=== PATIENT | male | born 1960 | race Caucasian/White ===

== ENCOUNTER 2019-06-19 12:52 | Inpatient (IN) | payer OTHER ==
[~2019-06-19] VITALS: Ht 182.8 cm; Wt 68.0 kg
[~2019-06-19 12:52] MED LIST: ALBUTEROL2.5 MG/0.5 INH; AMLODIPINE BESYL5 MG PO; ARANESP25 MCG/0.4 IJ; ASPIRIN CHEWABL81 MG PO; ASPIRIN81 M1 PO; ATORVASTATIN CA20 M1 PO; BRIMONIDINE TAR10 ML OS; BUPROPION HCL100 M2 PO; BUPROPION HCL200 MG PO; BUPROPION HCL300 MG PO; BUSPIRONE HCL10 MG PO; CELEXA20 MG PO; CIPRO250 MG PO; COMBIVENT RESPIM4 GM INH; COREG12.5 M1 PO; COREG25 MG PO; D3-20002000 UNIT PO; DOCUSATE SODIU250 MG PO; EFFEXOR XR150 MG PO; EFFEXOR XR75 MG PO; FINASTERIDE5 M1 PO; FLOMAX0.4 MG PO; GABAPENTIN100 MG PO; GLUCAGON EMERGEN1 M1 IJ; GLUCOSE1 EACH PO; GLUCOSE33 GM PO; KEFLEX500 MG PO; KENALOG 0.5% CR15 GM T; LANTUS SOL100 UNIT/1 SC; LANTUS SOL100 UNIT/1 SQ; LANTUS SOLOS100 U/M1 SC; LIPITOR20 MG PO; LIPITOR40 MG PO; LOMOTIL 0.025 M1 TA1 PO; MULTI VITAMINS1 TAB PO; NEURONTIN100 MG PO; NICOTINE POLACRI2 MG PO; NOVOLOG FL100 UNIT/1 SQ; NOVOLOG FL100 UNIT/2 SQ; PHENERGAN25 M1 PO; POLYETHYLENE GL1 PO7 PO; PREDNISONE10 MG PO; PREDNISONE20 M1 PO; SPIRIVA18 MCG PO; TAMSULOSIN HCL0.4 MG PO; TRAZODONE HCL300 MG PO; TRAZODONE150 MG PO; VENTOLIN H0.09 MG/AC INH; VIBRAMYCIN100 MG PO; VITAMIN D22000 UNIT PO; ZITHROMAX250 MG PO; ZOFRAN ODT4 MG SL; [UNRECOGNIZED DRUG - OTHER] PO
[2019-06-19 12:53] VITALS: BP 163/70
[2019-06-19 13:23] LABS: BASO % 0.4 % (0.0-1.0); EOS # 0.7 10*3/uL (0.0-0.4); EOS % 8.2 % (1.0-4.0); HEMATOCRIT 27.1 % (42.0-52.0); HEMOGLOBIN 9.2 g/dl (14.0-18.0); LYMPH # 1.4 10*3/uL (1.3-4.4); LYMPH % 16.5 % (27.0-41.0); MEAN CELL VOLUME 92.5 fl (80.0-94.0); MEAN CORPUSCULAR HGB 31.4 pg (27.0-31.0); MEAN CORPUSCULAR HGB CONC 33.9 g/dl (33.0-37.0); MEAN PLATELET VOLUME 8.3 fl (9.6-12.3); MONO # 0.7 10*3/uL (0.1-1.0); MONO % 8.5 % (3.0-9.0); NEUT # 5.6 10*3/uL (2.3-7.9); NEUT % 65.9 % (47.0-73.0); PLATELET COUNT AUTOMATED 285 10*3/uL (130-400); RED BLOOD COUNT 2.93 10*6/uL (4.50-5.90); RED CELL DISTRI WIDTH 12.3 % (0-14.5); WHITE BLOOD COUNT 8.4 10*3/uL (4.8-10.8)
[2019-06-19 13:33] LABS: ACT PARTIAL THROMBO TIME 26.1 SECONDS (20.0-32.1); INTERNATIONAL NORM RATIO 0.9 (2.0-3.5)
[2019-06-19 13:39] LABS: ALBUMIN 3.6 gm/dl (3.1-4.5); ALKALINE PHOSPHATASE 99 U/L (45-117); BUN 40 mg/dl (7-24); CHLORIDE 110 mmol/L (98-107); LIPASE 35 U/L (73-393); POTASSIUM 4.3 mmol/L (3.5-5.1); SGOT/AST 12 IU/L (3-35); SGPT/ALT 29 U/L (12-78); SODIUM 140 mmol/L (136-145); TOTAL PROTEIN 6.8 gm/dL (6.4-8.2)
[2019-06-19 13:45] LABS: TROPONIN I < 0.015 ng/ml (<0.045)
[2019-06-19 14:23] VITALS: BP 152/67
[2019-06-19 17:01] VITALS: BP 148/68
--- NOTE | 2019-06-19 17:02 | NUR ---
PT RESTING IN ROOM WATCHING TV
[2019-06-19 18:00] VITALS: BP 151/76
[2019-06-19 18:30] VITALS: BP 151/76
--- NOTE | 2019-06-19 18:30 | NUR ---
A 59, admitted to 4E, under the services of LEONARDO Vidales DO with a diagnosis of ACUTE RENAL FAILURE. Chief complaint is DIZZY. Patient arrived via stretcher from ER. Monitor applied. Initial assessment completed. Vital signs taken and recorded. LEONARDO VIDALES DO notified of admission to the unit. Orders received. See assessment for past medical history, medications and allergies. Patient and/or family oriented to unit. [facility] visitation policy reviewed. Clothing/patient valuable form completed. BHUMIKA BAJWA
--- NOTE | 2019-06-19 18:57 | NUR ---
DR. SOUSA AWARE OF CONSULT.
[2019-06-19 20:00] VITALS: BP 146/65
--- NOTE | 2019-06-19 22:07 | NUR ---
NORCO GIVEN PER PRN ORDER FOR C/O FOOT PAIN. RATED PAIN A 7/10 WITH 10 BEING THE WORST. SEE EMAR. REINFORCED USE OF CALL LIGHT.
[2019-06-19 22:59] LABS: URINE CREATININE RANDOM 87.3 mg/dL
[2019-06-20] VITALS: BP 140/52
[2019-06-20 06:06] LABS: BASO % 0.4 % (0.0-1.0); EOS # 0.8 10*3/uL (0.0-0.4); EOS % 9.6 % (1.0-4.0); HEMATOCRIT 26.9 % (42.0-52.0); LYMPH # 1.8 10*3/uL (1.3-4.4); MEAN CELL VOLUME 93.4 fl (80.0-94.0); MEAN CORPUSCULAR HGB 31.3 pg (27.0-31.0); MEAN CORPUSCULAR HGB CONC 33.5 g/dl (33.0-37.0); MEAN PLATELET VOLUME 8.7 fl (9.6-12.3); MONO # 0.7 10*3/uL (0.1-1.0); MONO % 8.7 % (3.0-9.0); NEUT # 4.6 10*3/uL (2.3-7.9); NEUT % 57.9 % (47.0-73.0); PLATELET COUNT AUTOMATED 298 10*3/uL (130-400); RED BLOOD COUNT 2.88 10*6/uL (4.50-5.90); RED CELL DISTRI WIDTH 12.3 % (0-14.5); WHITE BLOOD COUNT 7.9 10*3/uL (4.8-10.8)
[2019-06-20 06:39] LABS: ALBUMIN 3.5 gm/dl (3.1-4.5); POTASSIUM 4.2 mmol/L (3.5-5.1)
[2019-06-20 06:51] LABS: CREATININE 3.51 mg/dL (0.70-1.30); PHOSPHOROUS 4.2 mg/dL (2.5-4.9); THYROID STIM HORMONE (HS) 2.33 uIU/ml (0.358-4.75); TOTAL PROTEIN 6.3 gm/dL (6.4-8.2)
[2019-06-20 07:40] VITALS: BP 146/82
--- NOTE | 2019-06-20 07:40 | NUR ---
PAIENT PLEASANT AND COOPERATIVE DURING AM ASSEMENT, NO COMPLAINTS AT THIS TIME. GILDARDO ANDERSON SPNRCC
--- NOTE | 2019-06-20 08:00 | NUR ---
Alert and oriented x3. Lungs clear throughout. Denies sob. Abdomen soft normoactive bs x4. C/o nausea. States BM sunday. Denies pain. Resident in and examined pt. Aware of nausea.
--- NOTE | 2019-06-20 08:15 | NUR ---
IN TO EXAMINE PATIENT, ORDERED ORTHOSTATIC BLOOD PRESSURES, RESULTS WERE POSITIVE FOR CHANGE AND SYMPTOMS, RN NOTIFIED, WILL CONTINUE TO MONITOR. GILDARDO ANDERSON SPOCTAVIOCC
--- NOTE | 2019-06-20 08:40 | NUR ---
PATIENT C/O 9 OUT OF 10 "BURNING" FOOT PAIN, PRN NORCO GIVEN, PATIENT RESTING IN BED AT THIS TIME. GILDARDO ANDERSON SPNRCC
--- NOTE | 2019-06-20 09:00 | NUR ---
Satellite Tv Installer in to talk to patient. Patient states lives at home with . There are no steps in the home. Physician: liam [facility] Home health services: none Patient's level of ADLs: INDEPENDENT Patient has working utilities: all working DME: cane Follow-up physician's appointment after d/c: will be made by hospitalist nurse director upon discharge Does patient want to access PORTAL?: no Discharge plan discussed with patient, he states he lives at home with , he is blind and uses a cane for ambulation, his helps with his daily care, he stated he will return home when medically stable and denies any home needs, case management will follow. JACINTO KNIGHT
--- NOTE | 2019-06-20 09:45 | NUR ---
PAIN MEDICATION EFECTIVE, PATIENT STATES PAIN NOW A 2 OUT OF 10, WILL CONTINUE TO MONITOR. GILDARDO ANDERSON SPCC
--- NOTE | 2019-06-20 09:50 | NUR ---
Spoke with Dr. Barry and Dr. Blackwood regarding pt statements regarding home insulin and how he counts carbs and takes insulin when he eats.
--- NOTE | 2019-06-20 11:14 | NUR ---
PT GLUCOSE MACHINE SAYS 400, PT ONLY WOULD ALLOW US TO GIVE 6 UNITS OF HUMALOG GILDARDO ANDERSON SPNRCC
[2019-06-20 12:00] VITALS: BP 152/74
--- NOTE | 2019-06-20 13:00 | NUR ---
PT STATES THAT HE FEELS NAUSEATED, MEDICATED WITH ZOFRAN, NURSE CALLED DOCTOR ABOUT OBTAINING HIS LANTUS INSULIN, GILDARDO WEINSTEINCC
--- NOTE | 2019-06-20 13:12 | NUR ---
GAVE PT MORING DOSE OF LANTUS, ALSO GAVE AN ADDITIONAL 6 UNITS OF HUMALOG FOR ELEVATED BLOOD SUGAR AND TO COVER LUNCH, NAUSEA ALREADY SUBSIDING, TOTAL OF 12 UNITS OF RAPID ACTING INSULIN GIVEN FOR 1130 COVERAGE GILDARDO WOODRUFF
--- NOTE | 2019-06-20 13:41 | NUR ---
AT THE BEDSIDE, CONTINUING TO EAT LUNCH WITHOUT FURTHER NAUSEA GILDARDO ANDERSON SPNRCC
[2019-06-20 14:58] LABS: BILIRUBIN NEGATIVE (NEGATIVE); BLOOD NEGATIVE (NEGATIVE); CLARITY CLEAR (CLEAR); COLOR STRAW (YELLOW); GLUCOSE 3+ (NEGATIVE); KETONE NEGATIVE (NEGATIVE); LEUKO ESTERASE NEGATIVE (NEGATIVE); NITRITE NEGATIVE (NEGATIVE); UROBILINOGEN 0.2 E.U./dl (0.2-1.0)
[2019-06-20 14:59] LABS: WBC 0-2 wbc/hpf (0-5)
--- NOTE | 2019-06-20 16:00 | NUR ---
Pt states his blood sugar is 400. Pt is currently ordered DC. Pt states he does not want coverage here that he will adress it at home. I did notify Dr. Blackwood of pt results and statements. Offered coverage to pt but he states he wants to take it at home. present with pt agrees. States pt had good control of glucose at home. Reviewed dc instructions and questions answered.
--- NOTE | 2019-06-20 16:10 | NUR ---
Dc in care of via wheelchair.
== END 2019-06-20 16:10 | disposition home or self-care (01) | DRG 637 ==
LOC: ED 12:52 → 4E 17:25
PROVIDERS: Emergency Medicine; Internal Medicine Nephrology; Student in an Organized Health Care Education/Training Program; ADMIT Family Medicine
DX: E10.65 Type 1 diabetes mellitus with hyperglycemia (principal); N17.0 Acute kidney failure with tubular necrosis; N18.4 Chronic kidney disease, stage 4 (severe); E10.319 Type 1 diabetes mellitus with unspecified diabetic retinopathy without macular edema; E10.43 Type 1 diabetes mellitus with diabetic autonomic (poly)neuropathy; I95.1 Orthostatic hypotension; F32.9 Major depressive disorder, single episode, unspecified; I12.9 Hypertensive chronic kidney disease with stage 1 through stage 4 chronic kidney disease, or unspecified chronic kidney disease; F41.9 Anxiety disorder, unspecified; E78.5 Hyperlipidemia, unspecified; J44.9 Chronic obstructive pulmonary disease, unspecified; E87.8 Other disorders of electrolyte and fluid balance, not elsewhere classified; N40.1 Benign prostatic hyperplasia with lower urinary tract symptoms; R35.1 Nocturia; D64.9 Anemia, unspecified; E10.22 Type 1 diabetes mellitus with diabetic chronic kidney disease; Z81.8 Family history of other mental and behavioral disorders; Z79.82 Long term (current) use of aspirin; Z79.899 Other long term (current) drug therapy; Z79.4 Long term (current) use of insulin; Z87.891 Personal history of nicotine dependence

== ENCOUNTER 2019-08-23 13:03 | Emergency (ER) | payer MEDICARE, OTHER ==
[~2019-08-23] VITALS: Ht 182.8 cm; Wt 72.6 kg
[2019-08-23 14:02] LABS: BASO % 0.2 % (0.0-1.0); EOS # 0.3 10*3/uL (0.0-0.4); EOS % 1.8 % (1.0-4.0); HEMATOCRIT 28.9 % (42.0-52.0); HEMOGLOBIN 9.6 g/dl (14.0-18.0); LYMPH # 1.2 10*3/uL (1.3-4.4); LYMPH % 8.1 % (27.0-41.0); MEAN CELL VOLUME 93.2 fl (80.0-94.0); MEAN CORPUSCULAR HGB CONC 33.2 g/dl (33.0-37.0); MEAN PLATELET VOLUME 8.6 fl (9.6-12.3); MONO # 1.4 10*3/uL (0.1-1.0); MONO % 9.3 % (3.0-9.0); NEUT # 11.9 10*3/uL (2.3-7.9); NEUT % 80.1 % (47.0-73.0); PLATELET COUNT AUTOMATED 296 10*3/uL (130-400); RED CELL DISTRI WIDTH 12.7 % (0-14.5); WHITE BLOOD COUNT 14.9 10*3/uL (4.8-10.8)
[2019-08-23 14:19] LABS: ALBUMIN 3.1 gm/dl (3.1-4.5); CREATININE 3.48 mg/dL (0.70-1.30); POTASSIUM 3.9 mmol/L (3.5-5.1); TOTAL PROTEIN 6.6 gm/dL (6.4-8.2)
[2019-08-23] MEDS ORDERED: KEFLEX500 M1 PO (15:24)
[2019-08-23] MEDS ORDERED: ZOFRAN4 MG PO (15:24)
[2019-08-23] MEDS ORDERED: IMODIUM A-D2 M2 PO (15:24)
== END 2019-08-23 15:18 | disposition home or self-care (01) ==
LOC: ED 13:03
PROVIDERS: Emergency Medicine
DX: L03.116 Cellulitis of left lower limb (principal); K52.9 Noninfective gastroenteritis and colitis, unspecified; Z79.899 Other long term (current) drug therapy; Z79.4 Long term (current) use of insulin; Z79.82 Long term (current) use of aspirin

== ENCOUNTER → 2020-06-30 | Outpatient (CLI) | payer MEDICARE, OTHER ==
[~2020-06-30] MED LIST changes: +IMODIUM A-D2 M2 PO; +KEFLEX500 M1 PO; +ZOFRAN4 MG PO
[2020-06-30 12:26] LABS: BASO # 0.1 10*3/uL (0.0-0.1); BASO % 0.9 % (0.0-1.0); EOS % 17.6 % (1.0-4.0); HEMATOCRIT 30.4 % (42.0-52.0); LYMPH # 1.3 10*3/uL (1.3-4.4); LYMPH % 11.5 % (27.0-41.0); MEAN CELL VOLUME 93.8 fl (80.0-94.0); MEAN CORPUSCULAR HGB 30.9 pg (27.0-31.0); MEAN CORPUSCULAR HGB CONC 32.9 g/dl (33.0-37.0); MEAN PLATELET VOLUME 8.6 fl (9.6-12.3); MONO % 8.4 % (3.0-9.0); NEUT % 61.2 % (47.0-73.0); PLATELET COUNT AUTOMATED 374 10*3/uL (130-400); RED BLOOD COUNT 3.24 10*6/uL (4.50-5.90); RED CELL DISTRI WIDTH 14.4 % (0-14.5); WHITE BLOOD COUNT 11.4 10*3/uL (4.8-10.8)
[2020-06-30 12:53] LABS: ALBUMIN 2.8 gm/dl (3.1-4.5); CREATININE 4.04 mg/dL (0.70-1.30); POTASSIUM 4.3 mmol/L (3.5-5.1); TOTAL PROTEIN 6.1 gm/dL (6.4-8.2)
[2020-06-30 13:59] LABS: PTH INTACT 50.3 pg/mL (18.5-88.0); VITAMIN D, 25-HYDROXY 58.5 ng/mL (30-100)
== END | disposition home or self-care (01) ==
LOC: LAB 11:57
PROVIDERS: ATTEND Internal Medicine Nephrology
DX: N18.5 Chronic kidney disease, stage 5 (principal); Z11.59 Encounter for screening for other viral diseases; Z79.899 Other long term (current) drug therapy; Z72.89 Other problems related to lifestyle

== ENCOUNTER 2021-04-30 08:36 | Emergency (ER) | payer MEDICARE, OTHER ==
[~2021-04-30] VITALS: Wt 68.0 kg
[2021-04-30 09:11] LABS: HEMATOCRIT 33.8 % (42.0-52.0); MEAN CELL VOLUME 90.9 fl (80.0-94.0); MEAN CORPUSCULAR HGB 29.6 pg (27.0-31.0); MEAN CORPUSCULAR HGB CONC 32.5 g/dl (33.0-37.0); MEAN PLATELET VOLUME 9.2 fl (9.6-12.3); PLATELET COUNT AUTOMATED 273 10*3/uL (130-400); RED BLOOD COUNT 3.72 10*6/uL (4.50-5.90); RED CELL DISTRI WIDTH 15.9 % (0-14.5); WHITE BLOOD COUNT 23.7 10*3/uL (4.8-10.8)
[2021-04-30 09:21] LABS: ACT PARTIAL THROMBO TIME 30.5 SECONDS (20.0-32.1)
[2021-04-30 09:27] LABS: ALBUMIN 2.1 gm/dl (3.1-4.5); CREATININE 5.32 mg/dL (0.70-1.30); POTASSIUM 3.7 mmol/L (3.5-5.1); TOTAL CELLS COUNTED 100 #CELLS; TOTAL PROTEIN 6.3 gm/dL (6.4-8.2)
[2021-04-30 09:28] LABS: PLATELET SUFFICIENCY NORMAL (NORMAL); POLYCHROMASIA SLIGHT
[2021-04-30 14:47] LABS: BILIRUBIN Negative (Negative); BLOOD 1+ (Negative); CLARITY Clear (Clear); COLOR Yellow (Yellow); GLUCOSE 1+ (Negative); KETONE Negative (Negative); LEUKO ESTERASE Negative (Negative); NITRITE Negative (Negative); PH 5.5 (4.5-8.0); SPECIFIC GRAVITY 1.015 (1.001-1.030)
[2021-04-30 15:06] LABS: BODY FLUID WBC 53 /uL
[2021-04-30 15:25] LABS: BACTERIA 1+; WBC 0-2 wbc/hpf (0-5)
[2021-04-30 16:02] LABS: BF LYMPHOCYTES 2 %; BF MONOCYTES 47 %; BF NEUTROPHILS 51 %
== END 2021-04-30 21:47 | disposition short-term general hospital (02) ==
LOC: ED 08:36
PROVIDERS: Emergency Medicine
DX: G93.40 Encephalopathy, unspecified (principal); Z20.822 Contact with and (suspected) exposure to COVID-19; L03.115 Cellulitis of right lower limb; L03.116 Cellulitis of left lower limb; R41.0 Disorientation, unspecified; F17.200 Nicotine dependence, unspecified, uncomplicated; I12.9 Hypertensive chronic kidney disease with stage 1 through stage 4 chronic kidney disease, or unspecified chronic kidney disease; E11.22 Type 2 diabetes mellitus with diabetic chronic kidney disease; N18.9 Chronic kidney disease, unspecified; Z98.890 Other specified postprocedural states; Z79.4 Long term (current) use of insulin; Z79.82 Long term (current) use of aspirin; Z79.899 Other long term (current) drug therapy

== ENCOUNTER 2021-09-17 12:28 | Inpatient (IN) | payer MEDICARE, OTHER ==
[~2021-09-17] VITALS: Ht 182.9 cm; Wt 65.6 kg
[~2021-09-17 12:28] MED LIST changes: +AMITRIPTYLINE10 MG PO; +LASIX80 MG PO
[2021-09-17 12:29] VITALS: BP 114/56
[2021-09-17 14:04] LABS: BASO % 0.3 % (0.0-1.0); EOS # 0.2 10*3/uL (0.0-0.4); EOS % 1.7 % (1.0-4.0); HEMATOCRIT 29.4 % (42.0-52.0); LYMPH # 0.9 10*3/uL (1.3-4.4); LYMPH % 8.2 % (27.0-41.0); MEAN CELL VOLUME 97.4 fl (80.0-94.0); MEAN CORPUSCULAR HGB 30.5 pg (27.0-31.0); MEAN CORPUSCULAR HGB CONC 31.3 g/dl (33.0-37.0); MEAN PLATELET VOLUME 9.4 fl (9.6-12.3); MONO # 0.6 10*3/uL (0.1-1.0); MONO % 6.2 % (3.0-9.0); NEUT # 8.6 10*3/uL (2.3-7.9); NEUT % 82.9 % (47.0-73.0); PLATELET COUNT AUTOMATED 356 10*3/uL (130-400); RED BLOOD COUNT 3.02 10*6/uL (4.50-5.90); RED CELL DISTRI WIDTH 15.7 % (0-14.5); WHITE BLOOD COUNT 10.3 10*3/uL (4.8-10.8)
[2021-09-17 14:16] LABS: CREATININE 5.46 mg/dL (0.70-1.30); POTASSIUM 3.7 mmol/L (3.5-5.1)
[2021-09-17 14:25] LABS: ACT PARTIAL THROMBO TIME 29.4 SECONDS (20.0-32.1)
[2021-09-17 15:19] LABS: BILIRUBIN Negative (Negative); BLOOD Negative (Negative); CLARITY Clear (Clear); COLOR Yellow (Yellow); GLUCOSE 3+ (Negative); KETONE Trace (Negative); LEUKO ESTERASE Negative (Negative); NITRITE Negative (Negative); PH 5.5 (4.5-8.0); UROBILINOGEN 0.2 E.U./dl (0.0-1.0)
[2021-09-17 15:44] LABS: BACTERIA 2+
[2021-09-17 15:45] LABS: EPITHELIAL CELLS 0-2
[2021-09-17 18:00] VITALS: BP 121/62
[2021-09-17] MEDS ORDERED: VENLAFAXINE H37.5 M5 PO (18:25)
[2021-09-17] MEDS ORDERED: BUPROPION XL300 MG PO (18:27)
[2021-09-17] MEDS ORDERED: TRAZODONE150 MG PO (18:31)
[2021-09-17] MEDS ORDERED: LATANOPROST2.5 ML OP (18:34)
[2021-09-17] MEDS ORDERED: AMLODIPINE BESY10 MG PO (18:35)
[2021-09-17] MEDS ORDERED: CALCIUM ACETAT667 MG PO (18:40)
[2021-09-17] MEDS ORDERED: PREGABALIN150 MG PO (18:41)
[2021-09-17] MEDS ORDERED: OMEPRAZOLE MAGN20 MG PO (18:43)
[2021-09-17] MEDS ORDERED: RENAL VITAMIN0.8 MG PO (18:50)
[2021-09-17] MEDS ORDERED: OXYCODONE HCL5 MG PO (18:52)
[2021-09-17] MEDS ORDERED: MELATONIN3 M3 PO (19:11)
[2021-09-17 20:00] VITALS: BP 111/73
[2021-09-18] VITALS: BP 111/58
[2021-09-18] MEDS ORDERED: LYRICA100 M1 PO (00:49)
[2021-09-18] MEDS ORDERED: LANTUS SOL100 UNIT/1 SC (00:57)
[2021-09-18] MEDS ORDERED: LOW DOSE ASPIRI81 M1 PO (01:00)
[2021-09-18 02:31] LABS: BASO % 0.4 % (0.0-1.0); EOS # 0.1 10*3/uL (0.0-0.4); HEMATOCRIT 29.4 % (42.0-52.0); LYMPH # 0.9 10*3/uL (1.3-4.4); LYMPH % 7.8 % (27.0-41.0); MEAN CELL VOLUME 96.4 fl (80.0-94.0); MEAN CORPUSCULAR HGB 29.5 pg (27.0-31.0); MEAN CORPUSCULAR HGB CONC 30.6 g/dl (33.0-37.0); MEAN PLATELET VOLUME 9.5 fl (9.6-12.3); MONO # 0.7 10*3/uL (0.1-1.0); NEUT # 9.6 10*3/uL (2.3-7.9); NEUT % 84.4 % (47.0-73.0); PLATELET COUNT AUTOMATED 358 10*3/uL (130-400); RED BLOOD COUNT 3.05 10*6/uL (4.50-5.90); RED CELL DISTRI WIDTH 15.7 % (0-14.5); WHITE BLOOD COUNT 11.4 10*3/uL (4.8-10.8)
[2021-09-18 02:53] LABS: CREATININE 5.78 mg/dL (0.70-1.30); POTASSIUM 4.1 mmol/L (3.5-5.1)
[2021-09-18 03:17] LABS: VITAMIN D, 25-HYDROXY 36.4 ng/mL (30-100)
[2021-09-18 08:00] VITALS: BP 146/57
[2021-09-18 12:00] VITALS: BP 111/73; BP 179/74
[2021-09-18 16:00] VITALS: BP 136/56
[2021-09-18 20:00] VITALS: BP 119/61
[2021-09-19] VITALS: BP 123/56
[2021-09-19 06:29] LABS: CREATININE 6.19 mg/dL (0.70-1.30); POTASSIUM 3.5 mmol/L (3.5-5.1)
[2021-09-19 06:30] LABS: BASO % 0.3 % (0.0-1.0); EOS # 0.4 10*3/uL (0.0-0.4); EOS % 3.6 % (1.0-4.0); LYMPH # 1.6 10*3/uL (1.3-4.4); LYMPH % 13.2 % (27.0-41.0); MEAN CELL VOLUME 95.4 fl (80.0-94.0); MEAN CORPUSCULAR HGB 30.4 pg (27.0-31.0); MEAN CORPUSCULAR HGB CONC 31.9 g/dl (33.0-37.0); MEAN PLATELET VOLUME 9.7 fl (9.6-12.3); MONO % 8.2 % (3.0-9.0); NEUT # 8.9 10*3/uL (2.3-7.9); NEUT % 74.3 % (47.0-73.0); PLATELET COUNT AUTOMATED 375 10*3/uL (130-400); RED BLOOD COUNT 2.83 10*6/uL (4.50-5.90); RED CELL DISTRI WIDTH 15.7 % (0-14.5)
[2021-09-19 08:00] VITALS: BP 127/69
[2021-09-19 12:00] VITALS: BP 140/65
[2021-09-19 16:00] VITALS: BP 144/65
[2021-09-19 20:00] VITALS: BP 133/53
[2021-09-20] VITALS: BP 113/71
[2021-09-20 06:13] LABS: BASO % 0.5 % (0.0-1.0); EOS # 0.3 10*3/uL (0.0-0.4); EOS % 4.7 % (1.0-4.0); HEMATOCRIT 30.8 % (42.0-52.0); LYMPH # 1.4 10*3/uL (1.3-4.4); LYMPH % 22.6 % (27.0-41.0); MEAN CELL VOLUME 96.3 fl (80.0-94.0); MEAN CORPUSCULAR HGB CONC 31.2 g/dl (33.0-37.0); MEAN PLATELET VOLUME 9.4 fl (9.6-12.3); MONO # 0.7 10*3/uL (0.1-1.0); MONO % 11.6 % (3.0-9.0); NEUT # 3.8 10*3/uL (2.3-7.9); PLATELET COUNT AUTOMATED 367 10*3/uL (130-400); RED CELL DISTRI WIDTH 15.7 % (0-14.5); WHITE BLOOD COUNT 6.4 10*3/uL (4.8-10.8)
[2021-09-20 06:24] LABS: POTASSIUM 4.3 mmol/L (3.5-5.1)
[2021-09-20 06:28] LABS: CREATININE 3.51 mg/dL (0.70-1.30)
[2021-09-20 08:00] VITALS: BP 118/58
[2021-09-20 12:00] VITALS: BP 107/45
[2021-09-20 16:00] VITALS: BP 103/54
[2021-09-20 20:00] VITALS: BP 117/53
[2021-09-21] VITALS: BP 141/74
[2021-09-21 06:34] LABS: BASO % 0.4 % (0.0-1.0); EOS # 0.4 10*3/uL (0.0-0.4); HEMATOCRIT 31.1 % (42.0-52.0); LYMPH # 1.5 10*3/uL (1.3-4.4); LYMPH % 18.3 % (27.0-41.0); MEAN CORPUSCULAR HGB 29.3 pg (27.0-31.0); MEAN CORPUSCULAR HGB CONC 30.5 g/dl (33.0-37.0); MEAN PLATELET VOLUME 9.5 fl (9.6-12.3); MONO % 11.7 % (3.0-9.0); NEUT # 5.3 10*3/uL (2.3-7.9); NEUT % 63.5 % (47.0-73.0); PLATELET COUNT AUTOMATED 401 10*3/uL (130-400); RED BLOOD COUNT 3.24 10*6/uL (4.50-5.90); RED CELL DISTRI WIDTH 15.5 % (0-14.5); WHITE BLOOD COUNT 8.4 10*3/uL (4.8-10.8)
[2021-09-21 07:00] LABS: CREATININE 4.23 mg/dL (0.70-1.30); POTASSIUM 3.9 mmol/L (3.5-5.1)
[2021-09-21 08:00] VITALS: BP 145/67
[2021-09-21 12:00] VITALS: BP 134/77
[2021-09-21 16:00] VITALS: BP 156/78
[2021-09-21 20:00] VITALS: BP 122/46
[2021-09-22] VITALS: BP 124/57
[2021-09-22 06:12] LABS: CREATININE 4.21 mg/dL (0.70-1.30)
[2021-09-22 06:25] LABS: POTASSIUM 5.5 mmol/L (3.5-5.1)
[2021-09-22 06:26] LABS: BASO % 0.5 % (0.0-1.0); EOS # 0.3 10*3/uL (0.0-0.4); EOS % 3.3 % (1.0-4.0); HEMATOCRIT 30.1 % (42.0-52.0); LYMPH # 1.1 10*3/uL (1.3-4.4); LYMPH % 13.6 % (27.0-41.0); MEAN CELL VOLUME 98.4 fl (80.0-94.0); MEAN CORPUSCULAR HGB 29.7 pg (27.0-31.0); MEAN CORPUSCULAR HGB CONC 30.2 g/dl (33.0-37.0); MEAN PLATELET VOLUME 9.8 fl (9.6-12.3); MONO % 11.9 % (3.0-9.0); NEUT # 5.8 10*3/uL (2.3-7.9); NEUT % 69.2 % (47.0-73.0); PLATELET COUNT AUTOMATED 377 10*3/uL (130-400); RED BLOOD COUNT 3.06 10*6/uL (4.50-5.90); RED CELL DISTRI WIDTH 15.7 % (0-14.5); WHITE BLOOD COUNT 8.4 10*3/uL (4.8-10.8)
[2021-09-22 08:00] VITALS: BP 144/66
[2021-09-22 12:00] VITALS: BP 133/76
[2021-09-22] MEDS ORDERED: DOXYCYCLINE MO100 MG PO (15:51)
[2021-09-22] MEDS ORDERED: PREGABALIN75 MG PO (15:51)
== END 2021-09-22 18:16 | disposition home health service (06) | DRG 564 ==
LOC: ED → 4E 17:47 → EDHOLD 17:47 → 4E 17:53
PROVIDERS: Emergency Medicine; Hospitalist; ADMIT Internal Medicine; ATTEND Internal Medicine
PROC: 4A02XM4 Measurement of Cardiac Total Activity, External Approach (ICD-10-PCS; principal; 2021-09-22)
PROC: 3E073KZ Introduction of Other Diagnostic Substance into Coronary Artery, Percutaneous Approach (ICD-10-PCS; 2021-09-22)
PROC: 5A1D70Z Performance of Urinary Filtration, Intermittent, Less than 6 Hours Per Day (ICD-10-PCS; 2021-09-22)
DX: T87.43 Infection of amputation stump, right lower extremity (principal); I21.4 Non-ST elevation (NSTEMI) myocardial infarction; N18.6 End stage renal disease; G93.41 Metabolic encephalopathy; E43 Unspecified severe protein-calorie malnutrition; L03.115 Cellulitis of right lower limb; I12.0 Hypertensive chronic kidney disease with stage 5 chronic kidney disease or end stage renal disease; Z68.1 Body mass index [BMI] 19.9 or less, adult; E83.41 Hypermagnesemia; F17.210 Nicotine dependence, cigarettes, uncomplicated; I34.0 Nonrheumatic mitral (valve) insufficiency; E87.5 Hyperkalemia; D64.9 Anemia, unspecified; Y83.5 Amputation of limb(s) as the cause of abnormal reaction of the patient, or of later complication, without mention of misadventure at the time of the procedure; E11.22 Type 2 diabetes mellitus with diabetic chronic kidney disease; E83.39 Other disorders of phosphorus metabolism; Z99.2 Dependence on renal dialysis; Z71.6 Tobacco abuse counseling

== ENCOUNTER → 2021-10-05 | Outpatient (CLI) | payer MEDICARE, OTHER ==
[~2021-10-05] MED LIST changes: +AMLODIPINE BESY10 MG PO; +BUPROPION XL300 MG PO; +CALCIUM ACETAT667 MG PO; +DOXYCYCLINE MO100 MG PO; +LATANOPROST2.5 ML OP; +LOW DOSE ASPIRI81 M1 PO; +LYRICA100 M1 PO; +MELATONIN3 M3 PO; +OMEPRAZOLE MAGN20 MG PO; +OXYCODONE HCL5 MG PO; +PREGABALIN150 MG PO; +PREGABALIN75 MG PO; +RENAL VITAMIN0.8 MG PO; +VENLAFAXINE H37.5 M5 PO
== END ==
LOC: WOUNDCARE 00:49
PROVIDERS: ATTEND Nurse Practitioner Family
DX: T87.89 Other complications of amputation stump (principal); S81.801A Unspecified open wound, right lower leg, initial encounter; E10.22 Type 1 diabetes mellitus with diabetic chronic kidney disease; I12.0 Hypertensive chronic kidney disease with stage 5 chronic kidney disease or end stage renal disease; N18.6 End stage renal disease; I25.2 Old myocardial infarction; J44.9 Chronic obstructive pulmonary disease, unspecified; N40.0 Benign prostatic hyperplasia without lower urinary tract symptoms; Z87.891 Personal history of nicotine dependence; Z79.4 Long term (current) use of insulin; Z99.2 Dependence on renal dialysis; X58.XXXA Exposure to other specified factors, initial encounter; Y93.89 Activity, other specified; Y92.89 Other specified places as the place of occurrence of the external cause; Y99.8 Other external cause status; Y83.5 Amputation of limb(s) as the cause of abnormal reaction of the patient, or of later complication, without mention of misadventure at the time of the procedure

== ENCOUNTER 2022-02-19 12:19 | Emergency (ER) | payer MEDICARE, OTHER ==
[~2022-02-19] VITALS: Ht 182.8 cm; Wt 65.8 kg
[2022-02-19] MEDS ORDERED: CEPHALEXIN500 M1 PO (13:46)
== END 2022-02-19 13:52 | disposition home or self-care (01) ==
LOC: ED 12:19
DX: M79.642 Pain in left hand (principal); L08.9 Local infection of the skin and subcutaneous tissue, unspecified; Z79.899 Other long term (current) drug therapy; Z79.82 Long term (current) use of aspirin; Z90.89 Acquired absence of other organs; W18.39XA Other fall on same level, initial encounter; Y93.89 Activity, other specified; Y92.89 Other specified places as the place of occurrence of the external cause; Y99.8 Other external cause status

== ENCOUNTER 2022-02-26 13:13 | Emergency (ER) | payer MEDICARE, OTHER ==
[~2022-02-26] VITALS: Ht 182.8 cm; Wt 68.0 kg
[~2022-02-26 13:13] MED LIST changes: +CEPHALEXIN500 M1 PO
== END 2022-02-26 14:45 | disposition short-term general hospital (02) ==
LOC: ED 13:13
DX: L08.89 Other specified local infections of the skin and subcutaneous tissue (principal); Z79.899 Other long term (current) drug therapy; Z79.82 Long term (current) use of aspirin; Z79.4 Long term (current) use of insulin

== ENCOUNTER → 2022-03-10 | Outpatient (CLI) | payer OTHER | END | disposition home or self-care (01) | LOC: WOUNDCARE 01:16 | PROVIDERS: ATTEND Surgery Vascular Surgery | DX: S61.203A Unspecified open wound of left middle finger without damage to nail, initial encounter (principal); T82.590A Other mechanical complication of surgically created arteriovenous fistula, initial encounter; S69.92XA Unspecified injury of left wrist, hand and finger(s), initial encounter; E10.622 Type 1 diabetes mellitus with other skin ulcer; L98.492 Non-pressure chronic ulcer of skin of other sites with fat layer exposed; E10.22 Type 1 diabetes mellitus with diabetic chronic kidney disease; N18.6 End stage renal disease; I25.2 Old myocardial infarction; I12.0 Hypertensive chronic kidney disease with stage 5 chronic kidney disease or end stage renal disease; N40.0 Benign prostatic hyperplasia without lower urinary tract symptoms; J44.9 Chronic obstructive pulmonary disease, unspecified; F17.210 Nicotine dependence, cigarettes, uncomplicated; Z79.4 Long term (current) use of insulin; X58.XXXA Exposure to other specified factors, initial encounter; Y93.89 Activity, other specified; Y92.89 Other specified places as the place of occurrence of the external cause; Y99.8 Other external cause status ==

== ENCOUNTER → 2022-03-17 | Outpatient (CLI) | payer MEDICARE, OTHER | END | disposition home or self-care (01) | LOC: WOUNDCARE 02:33 | PROVIDERS: ATTEND Surgery Vascular Surgery | DX: S61.203D Unspecified open wound of left middle finger without damage to nail, subsequent encounter (principal); T82.590D Other mechanical complication of surgically created arteriovenous fistula, subsequent encounter; S69.92XD Unspecified injury of left wrist, hand and finger(s), subsequent encounter; E11.22 Type 2 diabetes mellitus with diabetic chronic kidney disease; I12.0 Hypertensive chronic kidney disease with stage 5 chronic kidney disease or end stage renal disease; N18.6 End stage renal disease; I25.2 Old myocardial infarction; N40.0 Benign prostatic hyperplasia without lower urinary tract symptoms; J44.9 Chronic obstructive pulmonary disease, unspecified; F17.210 Nicotine dependence, cigarettes, uncomplicated; X58.XXXD Exposure to other specified factors, subsequent encounter ==

== ENCOUNTER → 2022-03-24 | Day surgery (SDC) | payer OTHER ==
[2022-03-23 13:09] VITALS: BP 108/42
[2022-03-23 14:17] LABS: ACT PARTIAL THROMBO TIME 33.3 SECONDS (20.0-32.1); INTERNATIONAL NORM RATIO 0.9 (2.0-3.5)
[2022-03-23 14:20] LABS: CREATININE 6.48 mg/dL (0.70-1.30); POTASSIUM 4.4 mmol/L (3.5-5.1)
[2022-03-23 17:49] LABS: BILIRUBIN Negative (Negative); BLOOD 2+ (Negative); CLARITY Turbid (Clear); COLOR Yellow (Yellow); GLUCOSE 2+ (Negative); KETONE Negative (Negative); LEUKO ESTERASE 3+ (Negative); NITRITE Negative (Negative); PH 5.5 (4.5-8.0); SPECIFIC GRAVITY 1.015 (1.001-1.030); UROBILINOGEN 0.2 E.U./dl (0.0-1.0)
[2022-03-23 17:55] LABS: WBC TNTC wbc/hpf (0-5); YEAST 2+
[~2022-03-24] VITALS: Ht 182.8 cm; Wt 68.0 kg
[~2022-03-24] MED LIST changes: +LYRICA75 M1 PO
[2022-03-24 08:00] VITALS: BP 156/66
[2022-03-24 10:10] VITALS: BP 134/60
[2022-03-24 10:25] VITALS: BP 158/70; BP 158/90
[2022-03-24 10:40] VITALS: BP 144/69
== END | disposition home or self-care (01) ==
LOC: SDC 03-23 12:30
PROVIDERS: ATTEND Surgery Vascular Surgery
DX: T82.898A Other specified complication of vascular prosthetic devices, implants and grafts, initial encounter (principal); L98.498 Non-pressure chronic ulcer of skin of other sites with other specified severity; K21.9 Gastro-esophageal reflux disease without esophagitis; I12.0 Hypertensive chronic kidney disease with stage 5 chronic kidney disease or end stage renal disease; E11.22 Type 2 diabetes mellitus with diabetic chronic kidney disease; N18.6 End stage renal disease; J44.9 Chronic obstructive pulmonary disease, unspecified; F41.9 Anxiety disorder, unspecified; K58.9 Irritable bowel syndrome, unspecified; Z96.651 Presence of right artificial knee joint; Y82.8 Other medical devices associated with adverse incidents

== ENCOUNTER → 2022-03-31 | Outpatient (CLI) | payer MEDICARE, OTHER | END | disposition home or self-care (01) | LOC: WOUNDCARE 00:26 | PROVIDERS: ATTEND Nurse Practitioner Family | DX: E10.622 Type 1 diabetes mellitus with other skin ulcer (principal); L97.521 Non-pressure chronic ulcer of other part of left foot limited to breakdown of skin; T82.590D Other mechanical complication of surgically created arteriovenous fistula, subsequent encounter; S61.203D Unspecified open wound of left middle finger without damage to nail, subsequent encounter; S69.92XD Unspecified injury of left wrist, hand and finger(s), subsequent encounter; E10.22 Type 1 diabetes mellitus with diabetic chronic kidney disease; I12.0 Hypertensive chronic kidney disease with stage 5 chronic kidney disease or end stage renal disease; N18.6 End stage renal disease; I25.2 Old myocardial infarction; N40.0 Benign prostatic hyperplasia without lower urinary tract symptoms; J44.9 Chronic obstructive pulmonary disease, unspecified; F17.210 Nicotine dependence, cigarettes, uncomplicated; X58.XXXD Exposure to other specified factors, subsequent encounter; Y83.8 Other surgical procedures as the cause of abnormal reaction of the patient, or of later complication, without mention of misadventure at the time of the procedure ==

== ENCOUNTER → 2022-04-07 | Outpatient (CLI) | payer MEDICARE, OTHER | END | disposition home or self-care (01) | LOC: WOUNDCARE 07:59 | PROVIDERS: ATTEND Surgery Vascular Surgery | DX: E10.621 Type 1 diabetes mellitus with foot ulcer (principal); L97.521 Non-pressure chronic ulcer of other part of left foot limited to breakdown of skin; S61.203D Unspecified open wound of left middle finger without damage to nail, subsequent encounter; S69.92XD Unspecified injury of left wrist, hand and finger(s), subsequent encounter; T82.590D Other mechanical complication of surgically created arteriovenous fistula, subsequent encounter; E10.22 Type 1 diabetes mellitus with diabetic chronic kidney disease; I12.0 Hypertensive chronic kidney disease with stage 5 chronic kidney disease or end stage renal disease; N18.6 End stage renal disease; I25.2 Old myocardial infarction; J44.9 Chronic obstructive pulmonary disease, unspecified; N40.0 Benign prostatic hyperplasia without lower urinary tract symptoms; F17.210 Nicotine dependence, cigarettes, uncomplicated; F17.200 Nicotine dependence, unspecified, uncomplicated; Z99.2 Dependence on renal dialysis; X58.XXXD Exposure to other specified factors, subsequent encounter; Y83.8 Other surgical procedures as the cause of abnormal reaction of the patient, or of later complication, without mention of misadventure at the time of the procedure ==

== ENCOUNTER → 2022-04-19 | Outpatient (CLI) | payer MEDICARE, OTHER ==
[2022-04-19 15:36] LABS: BASO # 0.1 10*3/uL (0.0-0.1); BASO % 0.5 % (0.0-1.0); EOS # 0.5 10*3/uL (0.0-0.4); EOS % 4.4 % (1.0-4.0); HEMATOCRIT 30.8 % (42.0-52.0); LYMPH # 1.2 10*3/uL (1.3-4.4); LYMPH % 9.5 % (27.0-41.0); MEAN CELL VOLUME 100.7 fl (80.0-94.0); MEAN CORPUSCULAR HGB 32.7 pg (27.0-31.0); MEAN CORPUSCULAR HGB CONC 32.5 g/dl (33.0-37.0); MEAN PLATELET VOLUME 8.3 fl (9.6-12.3); MONO % 8.1 % (3.0-9.0); NEUT # 9.5 10*3/uL (2.3-7.9); NEUT % 76.9 % (47.0-73.0); PLATELET COUNT AUTOMATED 367 10*3/uL (130-400); RED BLOOD COUNT 3.06 10*6/uL (4.50-5.90); RED CELL DISTRI WIDTH 13.5 % (0-14.5); WHITE BLOOD COUNT 12.4 10*3/uL (4.8-10.8)
[2022-04-19 15:46] LABS: INTERNATIONAL NORM RATIO 0.9 (2.0-3.5)
[2022-04-19 15:50] LABS: POTASSIUM 4.6 mmol/L (3.4-5.1)
[2022-04-19 15:56] LABS: CREATININE 5.27 mg/dL (0.70-1.30)
== END | disposition home or self-care (01) ==
LOC: LAB 15:08
PROVIDERS: Surgery Vascular Surgery; ATTEND Internal Medicine Endocrinology, Diabetes & Metabolism
DX: Z01.812 Encounter for preprocedural laboratory examination (principal); D68.8 Other specified coagulation defects

== ENCOUNTER → 2022-04-21 | Outpatient (CLI) | payer MEDICARE, OTHER | LOC: WOUNDCARE 01:37 | PROVIDERS: ATTEND Surgery Vascular Surgery | DX: Z53.21 Procedure and treatment not carried out due to patient leaving prior to being seen by health care provider (principal) ==

== ENCOUNTER → 2022-06-26 | Outpatient (CLI) | payer MEDICARE, OTHER ==
[~2022-06-26] MED LIST changes: +AMPICILLIN-SULB3 GM IV; +CALCIUM ACETAT667 M2 PO; +CEFTRIAXON2 GM/50 ML IV; +DOXYCYCLINE HY100 M9 PO; +HYDROXYCHLOROQ200 M1 PO; +OXYCONTIN20 M1 PO; +Rimactane,Rifa300 MG PO; +VANC1PIG IV
== END | disposition home or self-care (01) ==
LOC: WOUNDCARE 00:24
PROVIDERS: ATTEND Podiatrist Foot & Ankle Surgery
DX: T87.89 Other complications of amputation stump (principal); E10.621 Type 1 diabetes mellitus with foot ulcer; L97.522 Non-pressure chronic ulcer of other part of left foot with fat layer exposed; E10.22 Type 1 diabetes mellitus with diabetic chronic kidney disease; I13.0 Hypertensive heart and chronic kidney disease with heart failure and stage 1 through stage 4 chronic kidney disease, or unspecified chronic kidney disease; N18.9 Chronic kidney disease, unspecified; I50.9 Heart failure, unspecified; E10.52 Type 1 diabetes mellitus with diabetic peripheral angiopathy with gangrene; A48.0 Gas gangrene; I25.2 Old myocardial infarction; J44.9 Chronic obstructive pulmonary disease, unspecified; N40.0 Benign prostatic hyperplasia without lower urinary tract symptoms; Z89.511 Acquired absence of right leg below knee; Y83.5 Amputation of limb(s) as the cause of abnormal reaction of the patient, or of later complication, without mention of misadventure at the time of the procedure

== ENCOUNTER 2022-07-01 12:56 | Emergency (ER) | payer MEDICARE, OTHER ==
[~2022-07-01] VITALS: Ht 182.8 cm; Wt 68.0 kg
== END 2022-07-01 14:28 | disposition home or self-care (01) ==
LOC: ED 12:56
DX: T82.898A Other specified complication of vascular prosthetic devices, implants and grafts, initial encounter (principal); Z90.89 Acquired absence of other organs; Z98.890 Other specified postprocedural states; Y92.89 Other specified places as the place of occurrence of the external cause; Y83.8 Other surgical procedures as the cause of abnormal reaction of the patient, or of later complication, without mention of misadventure at the time of the procedure

== ENCOUNTER → 2022-07-07 | Day surgery (SDC) | payer MEDICARE, OTHER ==
[~2022-07-07] VITALS: Ht 182.8 cm; Wt 68.0 kg
[2022-07-07 06:57] VITALS: BP 165/75
[2022-07-07 09:44] VITALS: BP 113/56
[2022-07-07 09:59] VITALS: BP 113/56
[2022-07-07 10:14] VITALS: BP 110/55
[2022-07-07 10:29] VITALS: BP 107/65
[2022-07-07 10:40] VITALS: BP 108/69
== END | disposition home or self-care (01) ==
LOC: SDC 07-04 08:00
PROVIDERS: ATTEND Surgery Vascular Surgery
DX: T85.621A Displacement of intraperitoneal dialysis catheter, initial encounter (principal); F41.9 Anxiety disorder, unspecified; F32.A Depression, unspecified; J44.9 Chronic obstructive pulmonary disease, unspecified; F17.210 Nicotine dependence, cigarettes, uncomplicated; E11.9 Type 2 diabetes mellitus without complications; I10 Essential (primary) hypertension; K21.9 Gastro-esophageal reflux disease without esophagitis; Z86.73 Personal history of transient ischemic attack (TIA), and cerebral infarction without residual deficits; Z79.899 Other long term (current) drug therapy; Y82.8 Other medical devices associated with adverse incidents

== ENCOUNTER → 2022-07-10 | Outpatient (CLI) | payer MEDICARE, OTHER | END | disposition home or self-care (01) | LOC: WOUNDCARE 01:27 | PROVIDERS: ATTEND Podiatrist Foot & Ankle Surgery | DX: T87.89 Other complications of amputation stump (principal); E10.621 Type 1 diabetes mellitus with foot ulcer; L97.526 Non-pressure chronic ulcer of other part of left foot with bone involvement without evidence of necrosis; I73.9 Peripheral vascular disease, unspecified; I25.2 Old myocardial infarction; E10.22 Type 1 diabetes mellitus with diabetic chronic kidney disease; I13.2 Hypertensive heart and chronic kidney disease with heart failure and with stage 5 chronic kidney disease, or end stage renal disease; N18.6 End stage renal disease; I50.9 Heart failure, unspecified; E10.52 Type 1 diabetes mellitus with diabetic peripheral angiopathy with gangrene; A48.0 Gas gangrene; J44.9 Chronic obstructive pulmonary disease, unspecified; N40.0 Benign prostatic hyperplasia without lower urinary tract symptoms; F17.200 Nicotine dependence, unspecified, uncomplicated; Z99.2 Dependence on renal dialysis; Z89.511 Acquired absence of right leg below knee; Y83.5 Amputation of limb(s) as the cause of abnormal reaction of the patient, or of later complication, without mention of misadventure at the time of the procedure ==

== ENCOUNTER → 2022-07-14 | Outpatient (CLI) | payer MEDICARE, OTHER | END | disposition home or self-care (01) | LOC: WOUNDCARE 01:14 | PROVIDERS: ATTEND Surgery Vascular Surgery | DX: T81.89XD Other complications of procedures, not elsewhere classified, subsequent encounter (principal); L97.522 Non-pressure chronic ulcer of other part of left foot with fat layer exposed; E10.51 Type 1 diabetes mellitus with diabetic peripheral angiopathy without gangrene; E10.22 Type 1 diabetes mellitus with diabetic chronic kidney disease; I13.2 Hypertensive heart and chronic kidney disease with heart failure and with stage 5 chronic kidney disease, or end stage renal disease; I50.9 Heart failure, unspecified; N18.6 End stage renal disease; E10.52 Type 1 diabetes mellitus with diabetic peripheral angiopathy with gangrene; A48.0 Gas gangrene; H54.7 Unspecified visual loss; I25.2 Old myocardial infarction; N40.0 Benign prostatic hyperplasia without lower urinary tract symptoms; J44.9 Chronic obstructive pulmonary disease, unspecified; F17.200 Nicotine dependence, unspecified, uncomplicated; Z89.422 Acquired absence of other left toe(s); Y83.8 Other surgical procedures as the cause of abnormal reaction of the patient, or of later complication, without mention of misadventure at the time of the procedure ==

== ENCOUNTER → 2022-07-17 | Outpatient (CLI) | payer MEDICARE, OTHER | END | disposition home or self-care (01) | LOC: WOUNDCARE 01:26 | PROVIDERS: ATTEND Podiatrist Foot & Ankle Surgery | DX: T87.89 Other complications of amputation stump (principal); E10.621 Type 1 diabetes mellitus with foot ulcer; L97.522 Non-pressure chronic ulcer of other part of left foot with fat layer exposed; E10.22 Type 1 diabetes mellitus with diabetic chronic kidney disease; I13.2 Hypertensive heart and chronic kidney disease with heart failure and with stage 5 chronic kidney disease, or end stage renal disease; N18.6 End stage renal disease; I50.9 Heart failure, unspecified; E10.52 Type 1 diabetes mellitus with diabetic peripheral angiopathy with gangrene; A48.0 Gas gangrene; I25.2 Old myocardial infarction; H54.3 Unqualified visual loss, both eyes; N40.0 Benign prostatic hyperplasia without lower urinary tract symptoms; J44.9 Chronic obstructive pulmonary disease, unspecified; F17.200 Nicotine dependence, unspecified, uncomplicated; Y83.5 Amputation of limb(s) as the cause of abnormal reaction of the patient, or of later complication, without mention of misadventure at the time of the procedure ==

== ENCOUNTER → 2022-07-21 | Outpatient (CLI) | payer MEDICARE, OTHER | END | disposition home or self-care (01) | LOC: WOUNDCARE 01:34 | PROVIDERS: ATTEND Surgery Vascular Surgery | DX: T87.89 Other complications of amputation stump (principal); T81.89XA Other complications of procedures, not elsewhere classified, initial encounter; E10.621 Type 1 diabetes mellitus with foot ulcer; L97.522 Non-pressure chronic ulcer of other part of left foot with fat layer exposed; E10.52 Type 1 diabetes mellitus with diabetic peripheral angiopathy with gangrene; I96 Gangrene, not elsewhere classified; E10.22 Type 1 diabetes mellitus with diabetic chronic kidney disease; I13.2 Hypertensive heart and chronic kidney disease with heart failure and with stage 5 chronic kidney disease, or end stage renal disease; I50.9 Heart failure, unspecified; N18.6 End stage renal disease; I25.2 Old myocardial infarction; J44.9 Chronic obstructive pulmonary disease, unspecified; N40.0 Benign prostatic hyperplasia without lower urinary tract symptoms; F17.200 Nicotine dependence, unspecified, uncomplicated; Y92.238 Other place in hospital as the place of occurrence of the external cause; Y83.8 Other surgical procedures as the cause of abnormal reaction of the patient, or of later complication, without mention of misadventure at the time of the procedure; Y83.5 Amputation of limb(s) as the cause of abnormal reaction of the patient, or of later complication, without mention of misadventure at the time of the procedure ==

== ENCOUNTER → 2022-07-28 | Outpatient (CLI) | payer MEDICARE, OTHER | END | disposition home or self-care (01) | LOC: WOUNDCARE 01:01 | PROVIDERS: ATTEND Surgery Vascular Surgery | DX: T81.89XD Other complications of procedures, not elsewhere classified, subsequent encounter (principal); L97.522 Non-pressure chronic ulcer of other part of left foot with fat layer exposed; E10.22 Type 1 diabetes mellitus with diabetic chronic kidney disease; I13.2 Hypertensive heart and chronic kidney disease with heart failure and with stage 5 chronic kidney disease, or end stage renal disease; N18.6 End stage renal disease; I50.9 Heart failure, unspecified; E10.52 Type 1 diabetes mellitus with diabetic peripheral angiopathy with gangrene; A48.0 Gas gangrene; I25.2 Old myocardial infarction; J44.9 Chronic obstructive pulmonary disease, unspecified; N40.0 Benign prostatic hyperplasia without lower urinary tract symptoms; F17.200 Nicotine dependence, unspecified, uncomplicated; Z89.422 Acquired absence of other left toe(s); Y83.8 Other surgical procedures as the cause of abnormal reaction of the patient, or of later complication, without mention of misadventure at the time of the procedure ==